=== PATIENT | female | born 1975 | race Caucasian/White ===

== ENCOUNTER 2017-10-17 22:55 | Emergency (ER) | payer OTHER ==
[2017-10-17 23:03] VITALS: BP 145/87; PULSE 78; TEMP 98.1; BMI 32.3
--- NOTE | 2017-10-17 23:20 | PDOC ---
History of Present Illness - General Chief Complaint: Injury Stated Complaint: FELL FROM BED, INJURY LOWER BACK Time Seen by Provider: 10/17/17 23:01 Past History - Past Medical History Allergies/Adverse Reactions: Allergies Allergy/AdvReac Type Severity Reaction Status Date / Time No Known Allergies Allergy Verified 10/17/17 22:57 Home Medications: Ambulatory Orders Tizanidine HCl [Zanaflex (Nf) -] 2 mg PO TID PRN #10 tablet 10/17/17 Tizanidine HCl [Zanaflex (Nf) -] 2 mg PO TID PRN #10 tablet 10/17/17 Cardiac Disorders: Yes (WPW) COPD: No - Suicide/Smoking/Psychosocial Hx Smoking History: Never smoked Have you smoked in the past 12 months: No Information on smoking cessation initiated: No Hx Alcohol Use: Yes (OCCAS.) Drug/Substance Use Hx: No Substance Use Type: Alcohol *Physical Exam - Vital Signs Last Vital Signs Temp Pulse Resp BP Pulse Ox 98.1 F 78 16 145/87 100 10/17/17 22:59 10/17/17 22:59 10/17/17 22:59 10/17/17 22:59 10/17/17 22:59 *DC/Admit/Observation/Transfer Diagnosis at time of Disposition: Low back pain Qualifiers: Chronicity: acute Back pain laterality: midline Sciatica presence: without sciatica Qualified Code(s): M54.5 - Low back pain - Discharge Dispostion Disposition: HOME Condition at time of disposition: Stable - Prescriptions Prescriptions: Tizanidine HCl [Zanaflex (Nf) -] 2 mg PO TID PRN #10 tablet PRN Reason: Muscle Spasms Tizanidine HCl [Zanaflex (Nf) -] 2 mg PO TID PRN #10 tablet PRN Reason: Muscle Spasms - Referrals - Patient Instructions Printed Discharge Instructions: Low Back Pain Additional Instructions: Local warmth to area Continue Motrin 800 mg up to 3 times a day (take with food) Tizanidine 2 mg up to 3 times a day as needed for muscle spasm-this medication will make you sleepy Call your spinal surgeon tomorrow for follow-up within the next week Return to ER if you have severe, persistent lower back pain or numbness/ weakness of legs - Post Discharge Activity
[2017-10-17] MEDS ORDERED: KETOROLAC TROMETHAMINE 60 MG/2 ML VIAL IM ONE (23:37)
[2017-10-17] MEDS ORDERED: KETOROLAC TROMETHAMINE 60 MG/2 ML VIAL ONE (23:41)
--- NOTE | 2017-10-18 00:05 | PDOC ---
*Physical Exam - Vital Signs Last Vital Signs Temp Pulse Resp BP Pulse Ox 98.1 F 78 16 145/87 100 10/17/17 22:59 10/17/17 22:59 10/17/17 22:59 10/17/17 22:59 10/17/17 22:59 ED Treatment Course - RADIOLOGY Radiology Studies Ordered: Category Date Time Status SPINE-LUMBAR SACRAL [RAD] Stat Radiology 10/17/17 23:38 Ordered - Medications Given in the ED: ED Medications Discontinued Medications Generic Name Dose Route Start Last Admin Trade Name Susy PRN Reason Stop Dose Admin Ketorolac Tromethamine 60 mg 10/17/17 23:37 10/17/17 23:43 Toradol Injection - IM 10/17/17 23:38 60 mg ONCE ONE Administration Progress Note - Progress Note Progress Note: This 42-year-old woman with a history of 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) presents with 2 day history of lower back pain. This pain started when the patient slipped out of bed and struck the middle of her lower back against the floor. She states that she has pain in the central portion of the lower back/pelvic area. There is no pain in her buttock or either leg. She denies weakness/numbness or paresthesias in either leg. No other abnormality noted and patient did not sustain any other injury. She denies urinary retention/difficulty with bowel movements or groin numbness Patient has been taking ibuprofen at home with some relief but noted increased pain tonight, especially with movement. The patient has no known ALLERGIES PMH Chronic low back pain s/p tubal ligation 12 point review of systems is negative except for what is noted in the history of present illness GENERAL: Adult female, alert and oriented 3, in moderate distress secondary to lower back pain HEAD: Normal with no signs of trauma. EYES: PERRLA, EOMI, sclera anicteric, conjunctiva clear. ENT: Ears normal, nares patent, oropharynx clear without exudates. Dry mucous membranes. NECK: Normal range of motion, supple without lymphadenopathy, JVD, or masses. LUNGS: Breath sounds equal, clear to auscultation bilaterally. No wheezes, and no crackles. HEART:Regular rate and rhythm, normal S1 and S2 without murmur, rub or gallop. ABDOMEN:.normal bowel sounds No guarding,tenderness or rebound.No masses No distention. EXTREMITIES: Normal range of motion, no edema. No clubbing or cyanosis. No erythema, or tenderness. NEUROLOGICAL: Cranial nerves II through XII grossly intact. Normal speech. No focal neurological deficits. MUSCULOSKELETAL: Back-moderate tenderness to palpation midline L4-5 region No pain on straight leg raising either side SKIN: Warm, Dry, normal turgor, no rashes or lesions noted. Because the patient has pain after direct trauma to her back, lumbosacral plain x-rays were planned to evaluate for acute fracture. However, patient wished to defer radiologic studies tonight, wishing to follow-up with her neurologic surgeon in the next 48 hours. Toradol 60 mg IM was administered for pain relief Medical Decision Making - Medical Decision Making Patient has significant relief after Toradol 60 mg IM. Patient will be discharged with prescription for tizanidine 2 mg up to 3 times a day as needed for muscle spasm (patient has been cautioned regarding sedation after using this medication). Patient should also use local warmth to the area of pain. Patient states that she wants to continue with Motrin 800 mg (which patient has at home). *DC/Admit/Observation/Transfer Diagnosis at time of Disposition: Low back pain Qualifiers: Chronicity: acute Back pain laterality: midline Sciatica presence: without sciatica Qualified Code(s): M54.5 - Low back pain - Discharge Dispostion Disposition: HOME Condition at time of disposition: Stable - Prescriptions Prescriptions: Tizanidine HCl [Zanaflex (Nf) -] 2 mg PO TID PRN #10 tablet PRN Reason: Muscle Spasms Tizanidine HCl [Zanaflex (Nf) -] 2 mg PO TID PRN #10 tablet PRN Reason: Muscle Spasms - Referrals - Patient Instructions Printed Discharge Instructions: Low Back Pain Additional Instructions: Local warmth to area Continue Motrin 800 mg up to 3 times a day (take with food) Tizanidine 2 mg up to 3 times a day as needed for muscle spasm-this medication will make you sleepy Call your spinal surgeon tomorrow for follow-up within the next week Return to ER if you have severe, persistent lower back pain or numbness/ weakness of legs - Post Discharge Activity
== END 2017-10-18 00:11 | disposition home or self-care (01) ==
LOC: FER 22:55
PROC: 3E0233Z Introduction of Anti-inflammatory into Muscle, Percutaneous Approach (ICD-10-PCS; principal; 2017-10-17)
DX: M54.5 Low back pain (principal); W06.XXXA Fall from bed, initial encounter; Y93.89 Activity, other specified; Y92.003 Bedroom of unspecified non-institutional (private) residence as the place of occurrence of the external cause
CPT/HCPCS: 99281-25

== ENCOUNTER 2017-10-27 09:34 | Emergency (ER) | payer OTHER ==
[2017-10-27 09:51] VITALS: BP 124/75; PULSE 67; TEMP 98.4; BMI 32.3
--- NOTE | 2017-10-27 10:07 | PDOC ---
History of Present Illness - General Chief Complaint: Injury Stated Complaint: fell in bathtub Time Seen by Provider: 10/27/17 09:38 History Source: Patient (Patient walked in complaining of pain in the left shoulder , left ankle & left thigh after fall late last night when getting out of the tub) Exam Limitations: No Limitations - History of Present Illness Timing/Duration: 24 hours Severity: mild, moderate Modifying Factors: improves with: immobilization, medication Associated Symptoms: reports: denies symptoms Past History - Travel Traveled outside of the country in the last 30 days: No Close contact w/someone who was outside of country & ill: No - Past Medical History Allergies/Adverse Reactions: Allergies Allergy/AdvReac Type Severity Reaction Status Date / Time No Known Allergies Allergy Verified 10/27/17 09:35 Home Medications: Ambulatory Orders Ibuprofen 400 mg PO BID #14 tablet 10/27/17 Methocarbamol [Robaxin -] 500 mg PO BID #14 tablet 10/27/17 Cardiac Disorders: Yes (WPW) COPD: No DVT: No - Surgical History Abdominal Surgery: Yes (tubal ligation) - Suicide/Smoking/Psychosocial Hx Smoking History: Never smoked Have you smoked in the past 12 months: No Information on smoking cessation initiated: No Hx Alcohol Use: No Drug/Substance Use Hx: No Substance Use Type: Alcohol Review of Systems - Review of Systems Able to Perform ROS?: Yes Is the patient limited Greek proficient: Yes Constitutional: No: Symptoms Reported, See HPI, Chills, Diaphoresis, Fever, Loss of Appetite, Malaise, Night Sweats, Weakness, Weight Stable, Unintentional Wgt. Loss, Unexplained wgt Loss, Other HEENTM: No: Symptoms Reported, See HPI, Eye Pain, Blurred Vision, Tearing, Recent change in vision, Double Vision, Cataracts, Ear Pain, Ocular Prothesis, Ear Discharge, Nose Pain, Nose Congestion, Tinnitus, Nose Bleeding, Hearing Loss , Throat Pain, Throat Swelling, Mouth Pain, Dental Problems, Difficulty Swallowing, Mouth Swelling, Other Respiratory: No: Symptoms reported, See HPI, Cough, Orthopnea, Shortness of Breath, SOB with Exertion, SOB at Rest, Stridor, Wheezing, Productive cough, Hemoptysis, Other Cardiac (ROS): No: Symptoms Reported, See HPI, Chest Pain, Edema, Irregular Heart Rate, Lightheadedness, Palpitations, Syncope, Chest Tightness, Other Musculoskeletal: Yes: Symptoms Reported, See HPI, Joint Pain, Muscle Pain Integumentary: No: Symptoms Reported, See HPI, Bruising, Change in Color, Change in Hair/Nails, Dryness, Erythema, Flushing, Lesions, Lumps, Pallor, Pruritus, Rash, Sweating, Other Neurological: Yes: Symptoms reported, See HPI Psychiatric: No: Anxiety, Depression, Frequent Crying, Stressors, Sleep Pattern Change, Emotional Problems, Mood Swings, Change in Appetite, Other Endocrine: No: Symptoms Reported, See HPI, Excessive Sweating, Flushing, Intolerance to Cold, Intolerance to Heat, Increased Hunger, Increased Thirst, Increased Urine, Unexplained Weight Gain, Unexplained Weight Loss, Change in Weight, Other All Other Systems: Reviewed and Negative *Physical Exam - Vital Signs Last Vital Signs Temp Pulse Resp BP Pulse Ox 98.4 F 67 20 124/75 99 10/27/17 09:35 10/27/17 09:35 10/27/17 09:35 10/27/17 09:35 10/27/17 09:35 - Physical Exam General Appearance: Yes: Nourished, Appropriately Dressed, Mild Distress HEENT: positive: MONSE Neck: positive: Supple Respiratory/Chest: positive: Lungs Clear. negative: Chest Tender Cardiovascular: positive: Regular Rhythm Gastrointestinal/Abdominal: positive: Normal Bowel Sounds Musculoskeletal: positive: Normal Inspection. negative: Decreased Range of Motion Extremity: positive: Normal Capillary Refill, Normal Inspection, Normal Range of Motion Integumentary: positive: Normal Color Neurologic: positive: Fully Oriented, Alert Medical Decision Making - Medical Decision Making Xrays read by me and later confirmed by radiology =wnl Ankle splint provided, and applied by me with relief 10/27/17 18:16 *DC/Admit/Observation/Transfer Diagnosis at time of Disposition: Contusion Qualifiers: Encounter type: initial encounter Contusion area: ankle Laterality: left Qualified Code(s): S90.02XA - Contusion of left ankle, initial encounter Contusion of shoulder Qualifiers: Encounter type: initial encounter Laterality: left Qualified Code(s): S40.012A - Contusion of left shoulder, initial encounter - Discharge Dispostion Disposition: HOME Condition at time of disposition: Stable Admit: No - Prescriptions Prescriptions: Ibuprofen 400 mg PO BID #14 tablet Methocarbamol [Robaxin -] 500 mg PO BID #14 tablet - Referrals - Patient Instructions Printed Discharge Instructions: DI for Contusion - Post Discharge Activity
== END 2017-10-27 11:52 | disposition home or self-care (01) ==
LOC: FER 09:34
DX: S90.02XA Contusion of left ankle, initial encounter (principal); S40.012A Contusion of left shoulder, initial encounter; W18.2XXA Fall in (into) shower or empty bathtub, initial encounter; Y93.89 Activity, other specified; Y92.002 Bathroom of unspecified non-institutional (private) residence as the place of occurrence of the external cause
CPT/HCPCS: 73030-TC-LT; 73552-TC-LT; 73610-TC-LT; 99282-25

== ENCOUNTER 2021-07-27 13:21 | Emergency (ER) | payer BC, OTHER ==
[2021-07-27 13:38] VITALS: BP 123/63; PULSE 96; TEMP 99.7; BMI 31.4
[2021-07-27] MEDS ORDERED: LIDOCAINE 5% TOPICAL PATCH TP ONE (14:08)
[2021-07-27] MEDS ORDERED: KETOROLAC TROMETHAMINE 15 MG/ML VIAL IM ONE (14:08)
[2021-07-27] MEDS ORDERED: ACETAMINOPHEN 500 MG TABLET (FP) PO ONE (14:08)
[2021-07-27] MEDS ORDERED: METHOCARBAMOL 500 MG TABLET PO ONE (14:09)
[2021-07-27] MEDS ORDERED: METHOCARBAMOL 500 MG TABLET ONE (14:19)
[2021-07-27] MEDS ORDERED: KETOROLAC TROMETHAMINE 15 MG/ML VIAL ONE (14:19)
[2021-07-27] MEDS ORDERED: ACETAMINOPHEN 325 MG TABLET (FP) ONE (14:20)
[2021-07-27] MEDS ORDERED: LIDOCAINE 5% TOPICAL PATCH ONE (14:20)
[2021-07-27] MEDS ORDERED: ONDANSETRON *ODT* 4 MG TABLET SL ONE (14:39)
[2021-07-27] MEDS ORDERED: ONDANSETRON *ODT* 4 MG TABLET ONE (14:42)
[2021-07-27] MEDS ORDERED: LIDOCAINE PATCH REMOVAL MC SCH (22:00)
== END 2021-07-27 15:41 | disposition home or self-care (01) ==
LOC: FER 13:21
PROC: 3E0233Z Introduction of Anti-inflammatory into Muscle, Percutaneous Approach (ICD-10-PCS; principal; 2021-07-27)
DX: M54.5 Low back pain (principal)
CPT/HCPCS: 81003; 87086; 99283-25; Q0162

== ENCOUNTER 2022-04-21 17:41 | Emergency (ER) | payer BC ==
[2022-04-21 18:00] VITALS: BP 115/68; PULSE 81; TEMP 98.2; BMI 193.3
== END 2022-04-21 19:23 | disposition home or self-care (01) ==
LOC: JERFT 17:41
DX: L23.7 Allergic contact dermatitis due to plants, except food (principal)
CPT/HCPCS: 99282-25